=== PATIENT | female | born 1955 | race African-American/Black ===

== ENCOUNTER 2017-09-17 16:16 | Inpatient (IN) ==
--- NOTE | 2017-09-17 16:23 | Emergency Department Report ---
Neuro HPI - General Stated Complaint: poss stroke Time Seen by Provider: 09/17/17 16:23 Source: patient Mode of arrival: wheelchair Limitations: no limitations - History of Present Illness HPI Narrative: Patient is a 61-year-old female history of prior stroke in 1999, they cannot tell me if it was hemorrhagic or embolic. Patient is not no anticoagulation medications and I can identify. Patient was traveling home had sudden onset of expressive aphasia difficulty finding words. Family brought patient right to the ER for evaluation onset approximately 25 minutes ago Onset (ago): minute(s) Time: 1545 Time Estimated: No Location: speech Severity: moderate - Related Data Home Medications: Home Medications Medication Instructions Recorded Confirmed Amlodipine [Norvasc] 10 mg PO DAILY 09/17/17 09/17/17 Atorvastatin [Lipitor] 40 mg PO HS 09/17/17 09/17/17 Citalopram [Celexa] 10 mg PO DAILY 09/17/17 09/17/17 Donepezil [Aricept] 5 mg PO HS 09/17/17 09/17/17 Furosemide [Lasix] 20 mg PO DAILY 09/17/17 09/17/17 Gabapentin [Neurontin] 600 mg PO HS 09/17/17 09/17/17 Insulin Degludec *U100* [Tresiba 20 unit SQ HS 09/17/17 09/17/17 Flextouch U-100 Pen] Insulin Lispro [Humalog] 10 unit SQ WB 09/17/17 09/17/17 Insulin Lispro [Humalog] 12 unit SQ WL 09/17/17 09/17/17 Insulin Lispro [Humalog] 14 unit SQ WS 09/17/17 09/17/17 Levothyroxine Sodium 125 mcg PO ACB 09/17/17 09/17/17 Losartan [Cozaar] 100 mg PO HS 09/17/17 09/17/17 Allergies/Adverse Reactions: Allergies Allergy/AdvReac Type Severity Reaction Status Date / Time No Known Allergies Allergy Verified 09/17/17 17:19 Review of Systems Constitutional: Denies: fever, chills, weakness Eyes: Denies: eye pain, eye discharge ENT: Denies: ear pain, throat pain, dental pain Cardiovascular: Denies: chest pain Respiratory: Denies: cough, dyspnea Gastrointestinal: Denies: abdominal pain, nausea, vomiting Genitourinary: Denies: urgency, dysuria Musculoskeletal: Denies: back pain Integumentary: Denies: alopecia Neurological: Denies: headache, weakness, numbness PFSH Patient Stated Medical History Cerebrovascular Accident Yes Diabetes Mellitus Type 1 Yes Hx Renal Disease No Clinic Medical History (Last Updated 07/14/17 @ 11:19 by Juan Francisco Monroy MD) Diabetes mellitus type 2, uncontrolled, without complications (Chronic Medical ~ 1999) Uncontrolled at all times of day, especially after supper. Hypothyroidism (Chronic Medical ~1994) Clinically euthyroid. CKD (chronic kidney disease) stage 3, GFR 30-59 ml/min (Chronic Medical) Hypertension (Chronic Medical) Hyperlipidemia LDL goal <70 (Chronic Medical) Stroke (Chronic Medical ~1998) Obesity (BMI 30-39.9) (Chronic Medical) Family History: Family History (Last Reviewed 07/14/17 @ 11:09 by Juan Francisco Monroy MD) Mother Colon cancer Sister Pancreatic cancer Brother Multiple myeloma Sister Thyroid disease - Social History Smoking status: Never smoker Substance use type: does not use Alcohol intake frequency: does not drink Physical Exam - Limitations Limitations: no limitations - General General appearance: alert, in no apparent distress - Eye Eye exam: Present: PERRL, EOMI - ENT ENT exam: Present: normal oropharynx, mucous membranes moist, TM's normal bilaterally - Chest Chest inspection: Present: normal inspection, symmetric chest wall rise. Absent : tenderness - Respiratory Respiratory exam: Present: normal lung sounds bilaterally. Absent: respiratory distress, wheezes, stridor - Cardiovascular Cardiovascular exam: Present: regular rate, normal rhythm - Abdominal Exam Abdominal exam: Present: soft, normal bowel sounds. Absent: distention, tenderness - Extremities Exam Extremities exam: Present: full ROM. Absent: tenderness - Skin Skin exam: Present: warm, dry - Expanded Neurological Exam Speech: Present: expressive aphasia Cranial nerves: Normal: EOM function (II, III, IV, ), facial sensation (V), facial palsy (VII), gag reflex (IX), spinal accessory function (XI), tongue deviation (XII) Cerebellar function: normal gait Motor strength - LUE: 5/5 Motor strength - RUE: 5/5 Motor strength - LLE: 5/5 Motor strength - RLE: 5/5 Sensory exam upper extremity: Normal: light touch Sensory exam lower extremity: Normal: light touch DTR: 2+: biceps (L), biceps (R), patellar (L), patellar (R) Coma scale eye opening: spontaneous Coma scale motor response: obeys commands Coma scale verbal response: oriented Coma scale total: 15 Course Vital Signs Temperature 98 F 09/17/17 16:20 Pulse Rate 96 09/17/17 16:20 Respiratory Rate 20 09/17/17 16:20 Pulse Oximetry 98 09/17/17 16:20 Temperature 100.0 F 09/18/17 08:00 Pulse Rate 75 09/18/17 08:00 Respiratory Rate 14 09/18/17 08:00 Blood Pressure 129/64 09/18/17 08:00 Pulse Oximetry 100 09/18/17 08:00 Neuro Symptoms/Deficit - MDM Narrative Medical decision making narrative: Stroke response called: Neurologist has examined patient is currently recommending TPA, risks and benefits discussed with patient, consent signed. Patient's blood pressure elevated labetalol given times one which did decrease blood pressure but not below recommended norms. Brief discussion with neurologist, they would recommend nicardipine drip. Patient is been evaluated by Dr. Pineda, hospitalist, she feels patient's symptoms are improving she would recommend reconsult of Teleneurology re-TPA. Patient is examined again by neurology, neurology is still recommending TPA. Discussed with Dr. Pineda, we will give TPA at this time - Differential Diagnosis Likely: cerebrovascular accident, transient cerebral ischemia - Medical Records Attestation: I reviewed the patient's medical records. - Lab Data Attestation: I reviewed the patient's lab results. Result diagrams: 09/18/17 03:59 09/18/17 03:59 Lab Results 09/17/17 09/17/17 09/17/17 Range/Units 16:42 16:45 16:45 WBC 6.2 (4.5-11.0) T/MM3 RBC 5.13 (4.00-5.20) M/MM3 Hgb 13.3 (12-16) GM/DL Hct 41.8 (36-46) % MCV 81.5 (80-100) UM3 MCH 25.9 L (26-34) UUG MCHC 31.8 (31-37) GM/DL RDW Std Deviation 44.2 (36.9-50.2) FL Plt Count 340 (130-400) T/MM3 MPV 10.8 (9.4-12.4) UM3 Immature Gran % (Auto) 0.2 (0.0-0.5) % Neut % (Auto) 63.4 (33-66) % Lymph % (Auto) 26.7 (23-45) % [place] % (Auto) 8.1 (0-9.0) % Eos % (Auto) 1.1 (0-4) % Baso % (Auto) 0.5 (0-2) % Neut # (Auto) 3.9 (1.8-7.7) T/MM3 Lymph # (Auto) 1.7 (1-4.8) T/MM3 [place] # (Auto) 0.5 (0-0.8) T/MM3 Eos # (Auto) 0.1 (0-0.5) T/MM3 Baso # (Auto) 0.0 (0-0.2) T/MM3 Abs Immat Gran (auto) 0.01 (0.00-0.03) T/MM3 INR 0.99 (0.99-1.21) APTT 50.3 H (24-36) SEC Turbidity (0-20) Sodium (134-144) MEQ/L Potassium (3.6-5) MEQ/L Chloride (98-107) MEQ/L Carbon Dioxide (22-30) MEQ/L Anion Gap (5-15) MEQ/L BUN (7-17) MG/DL Creatinine (0.7-1.2) MG/DL GFR Calculation BUN/Creatinine Ratio (6-26) RATIO Glucose (65-110) MG/DL Glucometer 78 (65-110) mg/dL Calculated Osmolality (261-280) MOSM/KG Calcium (8.4-10.2) MG/DL Total Bilirubin (0.20-1.30) MG/DL Icterus Index (0-7) AST (14-36) U/L ALT (9-52) U/L Alkaline Phosphatase (38-126) U/L Troponin I (0-0.12) ng/ml Total Protein (6.3-8.2) G/DL Albumin (3.5-5.0) G/DL Globulin (2.4-3.6) G/DL Albumin/Globulin Ratio (1.1-2.2) RATIO Specimen Hemolysis (0-25) 02/16/18 Range/Units 16:55 WBC (4.5-11.0) T/MM3 RBC (4.00-5.20) M/MM3 Hgb (12-16) GM/DL Hct (36-46) % MCV (80-100) UM3 MCH (26-34) UUG MCHC (31-37) GM/DL RDW Std Deviation (36.9-50.2) FL Plt Count (130-400) T/MM3 MPV (9.4-12.4) UM3 Immature Gran % (Auto) (0.0-0.5) % Neut % (Auto) (33-66) % Lymph % (Auto) (23-45) % [place] % (Auto) (0-9.0) % Eos % (Auto) (0-4) % Baso % (Auto) (0-2) % Neut # (Auto) (1.8-7.7) T/MM3 Lymph # (Auto) (1-4.8) T/MM3 [place] # (Auto) (0-0.8) T/MM3 Eos # (Auto) (0-0.5) T/MM3 Baso # (Auto) (0-0.2) T/MM3 Abs Immat Gran (auto) (0.00-0.03) T/MM3 INR (0.99-1.21) APTT (24-36) SEC Turbidity < 20 (0-20) Sodium 147 H (134-144) MEQ/L Potassium 3.8 (3.6-5) MEQ/L Chloride 109 H (98-107) MEQ/L Carbon Dioxide 28 (22-30) MEQ/L Anion Gap 10 (5-15) MEQ/L BUN 17.0 (7-17) MG/DL Creatinine 1.9 H (0.7-1.2) MG/DL GFR Calculation 27 BUN/Creatinine Ratio 9 (6-26) RATIO Glucose 77 (65-110) MG/DL Glucometer (65-110) mg/dL Calculated Osmolality 283 H (261-280) MOSM/KG Calcium 9.9 (8.4-10.2) MG/DL Total Bilirubin 1.00 (0.20-1.30) MG/DL Icterus Index < 2 (0-7) AST 22 (14-36) U/L ALT 28 (9-52) U/L Alkaline Phosphatase 132 H (38-126) U/L Troponin I 0.031 (0-0.12) ng/ml Total Protein 7.2 (6.3-8.2) G/DL Albumin 4.1 (3.5-5.0) G/DL Globulin 3.1 (2.4-3.6) G/DL Albumin/Globulin Ratio 1.3 (1.1-2.2) RATIO Specimen Hemolysis 37 H (0-25) - Radiology Data Attestation: I reviewed the patient's radiology results. CT scan: No acute intercerebral abnormality - EKG Data EKG #1 EKG attestation: Yes: I reviewed and interpreted this EKG. Rate: normal Rhythm: NSR [place]/QRS: normal Interpretation: no acute changes Critical Care Time Critical Care Time: Yes Total Critical Care Time: 52 Attestation: The high probability of a clinically significant, sudden or life threatening deterioration of the neurologic and cardiovascular system(s) required my full and direct attention, intervention and personal management. The aggregate critical care time was 52 minutes. This time is in addition to time spent performing reported procedures but includes the following: X Data Review and interpretation X Patient assessment and monitoring of vital signs X Documentation X Medication orders and management Disposition Clinical Impression: Cerebrovascular accident [place]: 02 [place] [facility] [place] Care Condition: Stable - Seen By: physician
--- NOTE | 2017-09-17 16:48 | CT Scan Report ---
Indication: slurring of speech possible stroke PROCEDURE: CT head/brain wo con: Encounter: Initial Comparison: None Technique: Axial CT images through the head were performed without contrast. Iterative Reconstruction dose reducing technique was utilized. FINDINGS: The ventricles are of normal size, shape, and contour for the patient's age. There are scattered areas of low attenuation in the white matter which most likely represent changes from chronic microvascular ischemia. Old right caudate area lacunar infarcts. The brainstem, cerebellum, and cerebral hemispheres otherwise have a normal morphology and CT attenuation. There is no evidence of midline displacement. No hemorrhage, signs of acute territorial stroke, mass effect, mass lesions, or edema is evident. The visualized portions of the skull base, midface, and calvarium demonstrate no abnormality. The paranasal sinuses are well aerated and free of significant disease. The tympanic and mastoid cavities appear normal. IMPRESSION: No acute intracranial hemorrhage or extended infarct signs. Results discussed with Dr. Hernandez in the emergency department at 1633 on September 17, 2017, two minutes after the conclusion of the exam. .
[2017-09-17] MEDS ORDERED: ALTEPLASE (Activase*) 100mg INJECTION (Stroke Tx) IV ONE ×2 (16:57)
[2017-09-17] MEDS ORDERED: LABETALOL 100mg/20ml INJECTION IVP ONE (17:02)
[2017-09-17] MEDS ORDERED: NICARDIPINE 50 MG in NS 500ml 500 ML IV PRN (17:24)
[2017-09-17] MEDS: SALINE FLUSH 10ml SYRINGE IVF PRN (17:32)
--- NOTE | 2017-09-17 18:33 | History & Physical Report ---
History of Present Illness Date: 09/17/17 Chief complaint: possible stroke HPI: Patient is a 61yo female who presented to ED with her sister for possible stroke -like sxs. Her sister noted pt wasn't responding to questions appropriately and noted facial asymmetry. Patient herself didn't note any problems, but sister states the patient never recognizes when she is having health issues. Pt is a diabetic with retinopathy and nephropathy d/t uncontrolled DM. She sees Dr. Monroy for DM and Dr Sanches for her kidney disease. She was feeling fine prior to sx-onset. CT head was performed shortly after arrival to ER and was negative. Teleneurologist service was consulted and recommended tx with TPa. Patient had PICC line placed in ER, nicardipine drip started and was getting ready to start TPa at time of my visit. Pt's sister was present and supplied most of the history. Patient was very anxious, but was able to answer questions appropriately. She did have some expressive aphasia when giving her sister instructions for going home to take care of her dog, but it isn't clear whether this was truly expressive aphasia vs anxiety. Review of Systems All systems PM: 10-point ROS was reviewed, no additional remarkable complaints except Review of systems: specifically denies pain, numbness, weakness, headache or vision changes. Feels cold and anxious, otherwise neg ROS. Past Medical History Clinic Medical History Diabetes mellitus type 2, uncontrolled, without complications (Chronic Medical ~ 1999) Uncontrolled at all times of day, especially after supper. Hypothyroidism (Chronic Medical ~1994) Clinically euthyroid. CKD (chronic kidney disease) stage 3, GFR 30-59 ml/min (Chronic Medical) Hypertension (Chronic Medical) Hyperlipidemia LDL goal <70 (Chronic Medical) Stroke (Chronic Medical ~1998) Obesity (BMI 30-39.9) (Chronic Medical) Medical History Updates: h/o thyroid cancer. ? h/o TB. vascular dementia Surgical History: appy, cholecystectomy Family History: Family History Mother Colon cancer Sister Pancreatic cancer Brother Multiple myeloma Sister Thyroid disease Family History Updates: Sister with pancreatic cancer also had h/o breast CA and hemorrhagic CVA - Social History Smoking status: Former smoker (quit approx 2002) Substance use type: marijuana (previous) Alcohol intake frequency: does not drink Household members: none Social history: Moved here from [place]. Lives alone with her sister's dog. Her sister lives close and checks in on her. Patient does not drive. . No children. PCP-Dr. John Scientific Informatics Analyst - Dr Sanches Associate Director Qa - Dr. Vizcaino Medications Home Medications Medication Instructions Recorded Confirmed Type Amlodipine [Norvasc] 10 mg PO DAILY 09/17/17 09/17/17 History Atorvastatin [Lipitor] 40 mg PO HS 09/17/17 09/17/17 History Citalopram [Celexa] 10 mg PO DAILY 09/17/17 09/17/17 History Donepezil [Aricept] 5 mg PO HS 09/17/17 09/17/17 History Furosemide [Lasix] 20 mg PO DAILY 09/17/17 09/17/17 History Gabapentin [Neurontin] 600 mg PO HS 09/17/17 09/17/17 History Insulin Degludec *U100* [Tresiba 20 unit SQ HS 09/17/17 09/17/17 History Flextouch U-100 Pen] Insulin Lispro [Humalog] 10 unit SQ WB 09/17/17 09/17/17 History Insulin Lispro [Humalog] 12 unit SQ WL 09/17/17 09/17/17 History Insulin Lispro [Humalog] 14 unit SQ WS 09/17/17 09/17/17 History Levothyroxine Sodium 125 mcg PO ACB 09/17/17 09/17/17 History Losartan [Cozaar] 100 mg PO HS 09/17/17 09/17/17 History Allergies Allergy/AdvReac Type Severity Reaction Status Date / Time No Known Allergies Allergy Verified 09/17/17 17:19 Exam Vital Signs: Temperature 98.3 F 09/17/17 17:56 Pulse Rate 82 09/17/17 17:50 Respiratory Rate 24 09/17/17 17:50 Blood Pressure 168/79 H 09/17/17 17:50 Pulse Oximetry 95 09/17/17 17:58 - Constitutional Present: mild distress (anxious), well nourished, well developed - Routine HEENT Exam Head: Present: normocephalic, atraumatic Eye: Present: EOMI, PERRL, normal accommodation. Absent: conjunctival icterus ENT: Present: mucous membranes moist, oropharynx clear - Routine Neck Exam Present: supple. Absent: lymphadenopathy, thyromegaly - Routine Respiratory Exam Present: CTA bilaterally. Absent: wheezes - Routine Cardiovascular Exam Present: RRR, no murmur - Routine Abdominal Exam Present: soft, normoactive bowel sounds. Absent: tenderness, distended - Routine Extremities Exam Present: no edema, normal capillary refill - Routine Skin Exam Present: dry, warm - Routine Neurological Exam Present: alert, oriented X3, CN II-XII intact, moving all extremities, normal speech. Absent: sensory deficit, motor deficit, pronator drift, altered mental status, facial asymmetry - Routine Psychiatric Exam Present: normal affect, cooperative, anxious Results - Labs CBC & Chem 7: 09/17/17 16:45 09/17/17 16:55 Labs: Laboratory Tests 09/17/17 09/17/17 16:45 16:55 INR 0.99 APTT 50.3 H Troponin I 0.031 - ECG Data Tracing #1 NSR - Imaging and Cardiology CT scan - head Additional comments: Date of Exam: 09/17/17 Indication: slurring of speech possible stroke PROCEDURE: CT head/brain wo con: FINDINGS: The ventricles are of normal size, shape, and contour for the patient's age. There are scattered areas of low attenuation in the white matter which most likely represent changes from chronic microvascular ischemia. Old right caudate area lacunar infarcts. The brainstem, cerebellum, and cerebral hemispheres otherwise have a normal morphology and CT attenuation. There is no evidence of midline displacement. No hemorrhage, signs of acute territorial stroke, mass effect, mass lesions, or edema is evident. The visualized portions of the skull base, midface, and calvarium demonstrate no abnormality. The paranasal sinuses are well aerated and free of significant disease. The tympanic and mastoid cavities appear normal. IMPRESSION: No acute intracranial hemorrhage or extended infarct signs. Assessment and Plan (1) Stroke Current visit: No Status: Chronic Assessment and Plan: Assessment Expressive aphasia and transient facial droop - suspect ischemic stroke - tx with TPA initiated Diabetes mellitus type 2, uncontrolled, without complications (A1C 05/18 - 9.6%) Uncontrolled at all times of day, especially after supper. Hypothyroidism (Chronic Medical ~1994) Clinically euthyroid. CKD (chronic kidney disease) stage 3, GFR 30-59 ml/min (Creatinine 05/18 - 2.11) Diabetic retinopathy Hypertension Hyperlipidemia LDL goal <70 Stroke (Chronic Medical ~1998) Obesity (BMI 30-39.9) Plan Admit IP under the hospitalist service, Dr. Pineda attending. LOS expected to exceed 2 overnights given tx with TPA for stroke and given her many comorbidities. TPA was administered in ER. Admitted to CCU for close monitoring. Routine neurochecks/vitals. CT head w/o contrast at 24 hrs post TPA. Echo to eval cardiac structure and function and carotid doppler to r/o carotid stenosis. Telemetry to monitor for cardiac arrhythmia. Patient requests DNR and names her sister as her DPOA-H. Care to return to Dr. John on dismissal. DVT Prophylaxis: SCD's Resuscitation Status: Do Not Resuscitate - Physician Narrative Physician: Kacie Pineda MD Narrative: Date: 09/17/17 Time: 2044 I have independently evaluated and examined this patient. I reviewed the chart, the patient's history, and the WAREHOUSE LEAD/PA's documented findings as above. We discussed and formulated the assessment and plan as above with additions as below: Lina was seen in the emergency room prior to administration of TPA and again in the ICU as administration completed. She presented to the emergency room after onset of expressive aphasia well driving with her sister. Her sister also vividly describes facial droop/asymmetry which subsequently resolved. Expressive aphasia was present on arrival in the emergency room and had partially resolved at time of my initial assessment. When seen in the emergency room at approximately 4:30 PM the patient had soft speech and seemed hesitant to give responses although her responses were appropriate and she was able to provide limited history. She appeared very anxious about multiple people in the room working on IV access and multiple blood pressure readings being taken. She denied preceding numbness or weakness in any extremity. She denied visual blurring or double vision. She was able to repeat phrases and could tell me where she was. Proximal/distal power was intact in the upper and lower extremities with normal motor tone and no tremor Sensation was intact to touch/cold in the extremities and across the face. EOMI without nystagmus, sensation intact across all 3 distributions of the face , tongue midline, no facial asymmetry present and I could not detect any residual facial droop at the time of my initial assessment. Repeat examination at approximately 7:45 PM demonstrated no changes other than patient was speaking a little more forcefully than when initially seen. Time of reassessment the patient complained of left periorbital headache without visual symptoms. Head CT reviewed by myself no acute intracranial pathology; scattered areas of chronic white matter change consistent with microvascular disease, old right caudate lacunar infarct. EKG demonstrates sinus rhythm with quadrigeminal PVCs, no acute ST/T-wave changes, normal waveforms. Laboratory data notable for increased PTT, normal INR; mild hypernatremia, and creatinine of 1.9. Calcium is normal at this time. Expressive aphasia/facial droop-symptoms resolving Uncontrolled hypertension Unilateral headache Anxiety Continue labetalol to maintain systolic blood pressure below 180 but will not overcorrect, goal 150-[address] 24 hours. Routine therapy evaluations, and lipids. Because PTT is elevated will screen a lupus anticoagulant. Lorazepam added for anxiety; [place], morphine, and Tylenol available for pain. Resume basal insulin in conjunction with gabapentin, levothyroxine, Aricept, and atorvastatin at dose 80 mg daily at bedtime. Nursing report the patient's sister indicates patient is a full code-status reviewed with patient and her sister collectively due to patient's cognitive deficit. Patient clearly defers to her sister and full CODE STATUS was elected. Hospital Course Summary Disclaimer: The visit summary below is not to be considered part of the above Progress Note. Hospital Course: 09/17/17 - hospital admission Admit IP under the hospitalist service, Dr. Pineda attending. LOS expected to exceed 2 overnights given tx with TPA for stroke and given her many comorbidities. TPA was administered in ER. Admitted to CCU for close monitoring. Routine neurochecks/vitals. CT head w/o contrast at 24 hrs post TPA. Echo to eval cardiac structure and function and carotid doppler to r/o carotid stenosis. Telemetry to monitor for cardiac arrhythmia. Patient requests DNR and names her sister as her DPOA-H. Care to return to Dr. John on dismissal
[2017-09-17] MEDS ORDERED: ACETAMINOPHEN 650 MG SUPPOSITORY PR PRN (19:40)
[2017-09-17] MEDS ORDERED: MORPHINE SULFATE 4mg INJECTION IVP PRN (19:41)
[2017-09-17] MEDS ORDERED: HYDROCODONE/APAP 5mg/325mg TABLET PO PRN (19:41)
[2017-09-17 20:00] VITALS: BMI 28.3
[2017-09-17] MEDS ORDERED: ACETAMINOPHEN 325 MG TABLET PO PRN (21:03)
[2017-09-18] MEDS: ATORVASTATIN 40 MG TABLET PO SCH ×2 (01:45→21:39)
[2017-09-18] MEDS: GABAPENTIN 600 MG TABLET PO SCH ×2 (01:45→21:38)
[2017-09-18] MEDS: LEVOTHYROXINE 125 MCG TABLET PO SCH (06:36)
[2017-09-18] MEDS: CITALOPRAM 10 MG TABLET PO SCH (13:23)
[2017-09-18] MEDS ORDERED: INSULIN ASPART 100unit/ml INJECTION SQ ONE (13:27)
[2017-09-18] MEDS: SALINE FLUSH 10ml SYRINGE IVF PRN ×2 (13:29→17:53)
--- NOTE | 2017-09-18 14:18 | Progress Note ---
- Date 09/18/17 Subjective: Lina was sleeping when seen this morning, she awoke to voice but would drift back to sleep when not being actively stimulated. She reported headache resolved overnight and has not recurred. She denies focal weaknesses morning, difficulty swallowing, dyspnea, pain, or nausea. Nursing reported subtle right- sided weakness earlier on neuro check. Objective Vital signs: Temperature 100.0 F 09/18/17 08:00 Pulse Rate 75 09/18/17 08:00 Respiratory Rate 14 09/18/17 08:00 Blood Pressure 129/64 09/18/17 08:00 Pulse Oximetry 100 -RA 09/18/17 08:00 EXAM General-NAD, drowsy, falls asleep frequently HEENT-conjugate gaze, EOMI, oropharynx clear, tongue midline Lungs-respirations nonlabored, good airflow, breath sounds clear Cardiac-regular rhythm, S1-S2 Abd-soft, nontender, bowel sounds present Ext-without edema Neuro-MAEW, no drift of upper extremities although minor minor clonus present as patient is falling asleep, paper inspector symmetric, has trouble following instructions to test lower extremity power but able to hold each leg off the bed dependently/symmetrically, plantar flexion equal; sensation intact 4 extremities to light touch/cool Psych-dull, dementia - Height/Weight/BMI: Height 1.7 m Weight 83.3 kg Body Mass Index 28.3 Results - Labs CBC & Chem 7: 09/18/17 03:59 09/18/17 03:59 Labs: Total cholesterol 187, LDL 96, HDL 74, triglycerides 85 Lupus anticoagulant pending - Imaging and Cardiology carotid Doppler Status: image reviewed by me (minor atherosclerotic plaquing bilateral internal carotid arteries without hemodynamically significant stenosis per radiology report) Assessment and Plan (1) Stroke Current visit: No Status: Chronic Assessment and Plan: Assessment Expressive aphasia and transient facial droop - suspect ischemic stroke - tx with TPA initiated Hypertension, uncontrolled vs hypertensive crisis Left periorbital headache Anxiety Diabetes mellitus type 2, uncontrolled, without complications (A1C 05/18 - 9.6%) Uncontrolled at all times of day, especially after supper. Hypothyroidism (Chronic Medical ~1994) Clinically euthyroid. CKD (chronic kidney disease) stage 3, GFR 30-59 ml/min (Creatinine 05/18 - 2.11) Diabetic retinopathy Hyperlipidemia LDL goal <70 Stroke (Chronic Medical ~1998) Obesity (BMI 30-39.9) Vascular dementia Plan Aphasia has improved, I don't detect overt deficits at present although patient is drowsy and does not exhibit maximal effort with testing. TPA administered in [id number] CT today. Nicardipine required yesterday for blood pressure control, titrated off overnight and blood pressure now normal with usual home medicines on hold. Transient left periorbital headache last night without visual change or change in neurological exam, resolved with morphine. No recurrence. Telemetry with sinus rhythm per my review. Continue aspirin, atorvastatin at 80 mg. Consider MRI. Speech therapy cleared for regular diet, suggested communication screening for further language evaluation. Insulin resumed with meals. PT/OT evaluations completed-minor functional deficits, home health initial recommendation. DVT Prophylaxis: SCD's, Lovenox Resuscitation Status: Full Code - Physician Narrative Narrative: Date: 09/18/17 Time: 1415 Hospital Course Summary Disclaimer: The visit summary below is not to be considered part of the above Progress Note. Hospital Course: 09/17/17 - hospital admission Admit IP under the hospitalist service, Dr. Pineda attending. LOS expected to exceed 2 overnights given tx with TPA for stroke and given her many comorbidities. TPA was administered in ER. Admitted to CCU for close monitoring. Routine neurochecks/vitals. CT head w/o contrast at 24 hrs post TPA. Echo to eval cardiac structure and function and carotid doppler to r/o carotid stenosis. Telemetry to monitor for cardiac arrhythmia. Patient is full code and names her sister as her DPOA-H. Care to return to Dr. John on dismissal 09/18/17 Aphasia has improved, I don't detect overt deficits at present although patient is drowsy and does not exhibit maximal effort with testing. TPA administered in [id number] CT today. Nicardipine required yesterday for blood pressure control, titrated off overnight and blood pressure now normal with usual home medicines on hold. Transient left periorbital headache last night without visual change or change in neurological exam, resolved with morphine. No recurrence. Telemetry with sinus rhythm per my review. Continue aspirin, atorvastatin at 80 mg. Consider MRI. Speech therapy cleared for regular diet, suggested communication screening for further language evaluation. PT/OT evaluations completed-minor functional deficits, home health initial recommendation.
[2017-09-18] MEDS: INSULIN ASPART 100unit/ml INJECTION SQ SCH (17:52)
[2017-09-18] MEDS ORDERED: INFLUENZA VAC QIV 2017-18 (Fluarix*)(>=3yo) 0.5ml IM ONE (18:10)
[2017-09-18] MEDS ORDERED: INFLUENZA VAC. INJ. ADMIN CHARGE INJ ONE (18:30)
[2017-09-18] MEDS: INSULIN DEGLUDEC 100 UNIT/ML PO SCH (21:35)
[2017-09-18] MEDS: DONEPEZIL 5 MG TABLET PO SCH (21:38)
[2017-09-19] MEDS ORDERED: HYDRALAZINE 20 MG/ML INJECTION IVP PRN (05:17)
[2017-09-19] MEDS: LEVOTHYROXINE 125 MCG TABLET PO SCH (06:46)
[2017-09-19] MEDS: CITALOPRAM 10 MG TABLET PO SCH (08:45)
[2017-09-19] MEDS: SALINE FLUSH 10ml SYRINGE IVF PRN ×2 (08:47→15:50)
[2017-09-19] MEDS: INSULIN ASPART 100unit/ml INJECTION SQ SCH ×3 (08:47→18:02)
[2017-09-19] MEDS: ENOXAPARIN 40 MG/0.4 ML INJECTION SQ SCH (08:47)
[2017-09-19] MEDS: AMLODIPINE 10 MG TABLET PO SCH (09:44)
--- NOTE | 2017-09-19 10:40 | CT Scan Report ---
Indication: s/p TPA for CVA PROCEDURE: CT head/brain wo con: Encounter: Initial Comparison: Brain CT dated September 17, 2017 Technique: Axial CT images through the head were performed without contrast. Iterative Reconstruction dose reducing technique was utilized. FINDINGS: The ventricles are of normal size, shape, and contour for the patient's age. Old lacunar infarcts. No obvious evolving acute infarct seen. No evidence of acute hemorrhage. There are scattered areas of low attenuation in the white matter which most likely represent changes from chronic microvascular ischemia. The brainstem, cerebellum, and cerebral hemispheres otherwise have a normal morphology and CT attenuation. There is no evidence of midline displacement. No hemorrhage, mass effect, mass lesions, or edema is evident. The visualized portions of the skull base, midface, and calvarium demonstrate no abnormality. The paranasal sinuses are well aerated and free of significant disease. The tympanic and mastoid cavities appear normal. IMPRESSION: No acute intracranial hemorrhage following TPA administration. There is a preliminary report by [employer]. .
--- NOTE | 2017-09-19 10:44 | Ultrasound Report ---
Indication: cva PROCEDURE: US carotid doppler BI: TECHNIQUE: Grayscale, color and duplex Doppler imaging was performed of the carotid systems bilaterally. Velocities in cm/sec - validated velocity measurements with angiographic measurements, velocity criteria are extrapolated from diameter data as defined by the Society of Radiologists in Ultrasound Consensus Conference Radiology 2003; 229;340-346. RIGHT: PSV ICA 74.8 EDV ICA 17.3 PSV CCA 66.7 EDV CCA 13.5 PSV ECA 65.6 ICA Diameter reduction <20% (0.8-1.0)% LEFT: PSV ICA 62.3 EDV ICA 21.9 PSV CCA 68.3 EDV CCA 16.8 PSV ECA 53.3 ICA Diameter reduction <20% (0.8-1.0)% The right vertebral artery is patent with cephalic flow. The left vertebral artery is patent with cephalic flow. Minimal plaque present. No elevated velocities. IMPRESSION: No hemodynamically significant carotid stenosis. There is a preliminary report by [employer]. .
[2017-09-19] MEDS: INSULIN ASPART 100unit/ml INJECTION SQ PRN ×3 (12:49→20:34)
--- NOTE | 2017-09-19 13:26 | Progress Note ---
- Date 09/19/17 Subjective: Lina was sleeping when I arrived but awoke to voice and indicated that she had no concerns today. She felt like she was moving both arms and legs normally and that her speech has returned to normal. Nursing reported that the patient leaned to the left a little bit when she ambulated. Post-TPA CT head was negative for hemorrhage. Patient denies dyspnea, chest pain, palpitations, or nausea. Objective Vital signs: Temperature 100.0 F 09/19/17 12:30 Pulse Rate 95 09/19/17 12:30 Respiratory Rate 14 09/19/17 12:00 Blood Pressure 142/67 H 09/19/17 12:30 Pulse Oximetry 96 -RA 09/19/17 12:30 EXAM General-NAD, alert, fluent speech HEENT-conjunctiva clear, EOMI, sclera anicteric, oropharynx clear, tongue midline Lungs-respirations nonlabored, good airflow, breath sounds clear Cardiac-regular rhythm, S1-S2 Abd-soft, obese, nontender, bowel sounds present Ext-without edema Neuro-MAEW, no drift to the upper extremities, corporate legal secretary strong, dorsiflexion/ plantarflexion intact bilaterally; sensation intact to touch/cold 4 extremities Psych-anxious but cooperative - Height/Weight/BMI: Height 1.7 m Weight 83.1 kg Body Mass Index 28.3 Results - Labs CBC & Chem 7: 09/19/17 03:58 09/19/17 03:58 - Imaging and Cardiology CT scan - head Status: image reviewed by me (post-TPA CT head reviewed by myself demonstrates no hemorrhage.) Assessment and Plan (1) Stroke Current visit: No Status: Chronic Assessment and Plan: Assessment Expressive aphasia and transient facial droop - suspect ischemic stroke - tx with TPA initiated Hypertension, uncontrolled vs hypertensive crisis Left periorbital headache Anxiety Diabetes mellitus type 2, uncontrolled, without complications (A1C 05/18 - 9.6%) Uncontrolled at all times of day, especially after supper. Hypothyroidism (Chronic Medical ~1994) Clinically euthyroid. CKD (chronic kidney disease) stage 3, GFR 30-59 ml/min (Creatinine 05/18 - 2.11) Diabetic retinopathy Hyperlipidemia LDL goal <70 Stroke (Chronic Medical ~1998) Obesity (BMI 30-39.9) Vascular dementia Plan Expressive aphasia/facial droop have resolved; minimally symptomatic in the emergency room prior to TPA administration. Post-TPA head CT negative for hemorrhage. Proceed with MRI to complete stroke evaluation. Continue aspirin, atorvastatin at 80 mg. Carotid Dopplers without hemodynamically significant internal carotid stenosis. Blood pressure elevated overnight, home dose of amlodipine resumed this morning. Other home blood pressure medications remain on hold. Blood sugars generally well controlled on slightly reduced insulin doses from home regimen. PT/OT evaluations completed-minor functional deficits, home health initial recommendation. Speech therapy to reevaluate regarding language evaluation in a.m.-cleared for regular diet by speech yesterday. - Physician Narrative Narrative: Date: 09/19/17 Time: 1317 Hospital Course Summary Disclaimer: The visit summary below is not to be considered part of the above Progress Note. Hospital Course: 09/17/17 - hospital admission Admit IP under the hospitalist service, Dr. Pineda attending. LOS expected to exceed 2 overnights given tx with TPA for stroke and given her many comorbidities. TPA was administered in ER. Admitted to CCU for close monitoring. Routine neurochecks/vitals. CT head w/o contrast at 24 hrs post TPA. Echo to eval cardiac structure and function and carotid doppler to r/o carotid stenosis. Telemetry to monitor for cardiac arrhythmia. Patient is full code and names her sister as her DPOA-H. Care to return to Dr. John on dismissal 09/18/17 Aphasia has improved, I don't detect overt deficits at present although patient is drowsy and does not exhibit maximal effort with testing. TPA administered in HH-[id number] CT today. Nicardipine required yesterday for blood pressure control, titrated off overnight and blood pressure now normal with usual home medicines on hold. Transient left periorbital headache last night without visual change or change in neurological exam, resolved with morphine. No recurrence. Telemetry with sinus rhythm per my review. Continue aspirin, atorvastatin at 80 mg. Consider MRI. Speech therapy cleared for regular diet, suggested communication screening for further language evaluation. PT/OT evaluations completed-minor functional deficits, home health initial recommendation. 09/19/17 Expressive aphasia/facial droop have resolved; minimally symptomatic in the emergency room prior to TPA administration. Post-TPA head CT negative for hemorrhage. Proceed with MRI to complete stroke evaluation. Amlodipine resumed for hypertension; remainder of home medications on hold. Speech to reevaluate for language/communication in a.m.
[2017-09-19] MEDS: ASPIRIN *EC* 81 MG TABLET PO SCH (18:02)
[2017-09-19] MEDS: GABAPENTIN 600 MG TABLET PO SCH (20:33)
[2017-09-19] MEDS: ATORVASTATIN 40 MG TABLET PO SCH (20:33)
[2017-09-19] MEDS: DONEPEZIL 5 MG TABLET PO SCH (20:33)
[2017-09-19] MEDS: INSULIN DEGLUDEC 100 UNIT/ML PO SCH (20:36)
--- NOTE | 2017-09-19 22:05 | Magnetic Resonance Report ---
Indication: new aphasia, hx CVA PROCEDURE: MR head/brain wo con: Encounter: Initial Comparisons: Head CT dated September 18, 2017 Technique: Multiplanar, multisequence, MR imaging of the head without contrast was acquired. FINDINGS: Motion artifact severely limits the quality the exam. No gross acute intracranial hemorrhage or infarct. No mass effect or midline shift. Ventricles are normal. Age-appropriate periventricular white matter hyperintense lesions probably related to microvascular ischemia. Old right-sided frontal lobe lacunar infarct. No acute calvarial abnormality. Orbits are unremarkable. No acute diffusion restriction to suggest an acute infarct. IMPRESSION: Limited exam due to motion. No acute intracranial hemorrhage or infarct. .
[2017-09-20 00:35] VITALS: RESP 16
[2017-09-20] MEDS: LEVOTHYROXINE 125 MCG TABLET PO SCH (06:24)
[2017-09-20 08:11] VITALS: BP 163/84; PULSE 93; TEMP 95.8; O2SAT 95
[2017-09-20] MEDS: CITALOPRAM 10 MG TABLET PO SCH (08:13)
[2017-09-20] MEDS: INSULIN ASPART 100unit/ml INJECTION SQ SCH ×2 (08:13→13:17)
[2017-09-20] MEDS: ASPIRIN *EC* 81 MG TABLET PO SCH (08:13)
[2017-09-20] MEDS: AMLODIPINE 10 MG TABLET PO SCH (08:13)
[2017-09-20] MEDS: ENOXAPARIN 40 MG/0.4 ML INJECTION SQ SCH (08:13)
--- NOTE | 2017-09-20 10:05 | Discharge Summary ---
Discharge Information Date of admission: 09/17/17 18:02 Anticipated date of discharge: 09/20/17 Attending Physician: Kacie Pineda MD Primary care physician: Taryn John, DO - Discharge Diagnosis (1) Stroke Status: Chronic Expressive aphasia and transient facial droop - resolved. S/p TPA administration. Hypertension, uncontrolled vs hypertensive crisis Left periorbital headache-resolved Anxiety Diabetes mellitus type 2, uncontrolled, without complications (A1C 05/18 - 9.6%) Uncontrolled at all times of day, especially after supper. Hypothyroidism (Chronic Medical ~1994) Clinically euthyroid. CKD (chronic kidney disease) stage 3, GFR 30-59 ml/min (Creatinine 05/18 - 2.11) Diabetic retinopathy Hyperlipidemia LDL goal <70 Stroke (Chronic Medical ~1998) Obesity (BMI 30-39.9) Vascular dementia - Procedures Procedures: Echocardiogram - pending - Laboratory Labs: 09/20/17 03:45 09/20/17 03:45 Lipid panel 09/18/17 03:59 Triglycerides 85 Cholesterol 187 LDL Cholesterol, Calc 96.0 VLDL Cholesterol 17.0 HDL Cholesterol 74 H Cholesterol/HDL Ratio 2.5 - Radiology Radiology: = = = = = = = = = = = = = = = = = = = = = = = = = = = = = = = = = = = = = = = = = = = = = = = = = = = = = = = = = = = Date of Exam: 09/19/17 Indication: new aphasia, hx CVA PROCEDURE: MR head/brain wo con: FINDINGS: Motion artifact severely limits the quality the exam. No gross acute intracranial hemorrhage or infarct. No mass effect or midline shift. Ventricles are normal. Age-appropriate periventricular white matter hyperintense lesions probably related to microvascular ischemia. Old right-sided frontal lobe lacunar infarct. No acute calvarial abnormality. Orbits are unremarkable. No acute diffusion restriction to suggest an acute infarct. IMPRESSION: Limited exam due to motion. No acute intracranial hemorrhage or infarct. Date of Exam: 09/18/17 Indication: s/p TPA for CVA PROCEDURE: CT head/brain wo con: FINDINGS: The ventricles are of normal size, shape, and contour for the patient's age. Old lacunar infarcts. No obvious evolving acute infarct seen. No evidence of acute hemorrhage. There are scattered areas of low attenuation in the white matter which most likely represent changes from chronic microvascular ischemia. The brainstem, cerebellum, and cerebral hemispheres otherwise have a normal morphology and CT attenuation. There is no evidence of midline displacement. No hemorrhage, mass effect, mass lesions, or edema is evident. The visualized portions of the skull base, midface, and calvarium demonstrate no abnormality. The paranasal sinuses are well aerated and free of significant disease. The tympanic and mastoid cavities appear normal. IMPRESSION: No acute intracranial hemorrhage following TPA administration. Date of Exam: 09/18/17 Indication: cva PROCEDURE: US carotid doppler BI: RIGHT: PSV ICA 74.8 EDV ICA 17.3 PSV CCA 66.7 EDV CCA 13.5 PSV ECA 65.6 ICA Diameter reduction <20% (0.8-1.0)% LEFT: PSV ICA 62.3 EDV ICA 21.9 PSV CCA 68.3 EDV CCA 16.8 PSV ECA 53.3 ICA Diameter reduction <20% (0.8-1.0)% The right vertebral artery is patent with cephalic flow. The left vertebral artery is patent with cephalic flow. Minimal plaque present. No elevated velocities. IMPRESSION: No hemodynamically significant carotid stenosis. Date of Exam: 09/17/[address] IN ER Indication: slurring of speech possible stroke PROCEDURE: CT head/brain wo con: FINDINGS: The ventricles are of normal size, shape, and contour for the patient's age. There are scattered areas of low attenuation in the white matter which most likely represent changes from chronic microvascular ischemia. Old right caudate area lacunar infarcts. The brainstem, cerebellum, and cerebral hemispheres otherwise have a normal morphology and CT attenuation. There is no evidence of midline displacement. No hemorrhage, signs of acute territorial stroke, mass effect, mass lesions, or edema is evident. The visualized portions of the skull base, midface, and calvarium demonstrate no abnormality. The paranasal sinuses are well aerated and free of significant disease. The tympanic and mastoid cavities appear normal. IMPRESSION: No acute intracranial hemorrhage or extended infarct signs. History of Present Illness HPI: Patient is a 61yo female who presented to ED with her sister for possible stroke -like sxs. Her sister noted pt wasn't responding to questions appropriately and noted facial asymmetry. Patient herself didn't note any problems, but sister states the patient never recognizes when she is having health issues. Pt is a diabetic with retinopathy and nephropathy d/t uncontrolled DM. She sees Dr. Monroy for DM and Dr Sanches for her kidney disease. She was feeling fine prior to sx-onset. CT head was performed shortly after arrival to ER and was negative. Teleneurologist service was consulted and recommended tx with TPa. Patient had PICC line placed in ER, nicardipine drip started and was getting ready to start TPa at time of my visit. Pt's sister was present and supplied most of the history. Patient was very anxious, but was able to answer questions appropriately. She did have some expressive aphasia when giving her sister instructions for going home to take care of her dog, but it isn't clear whether this was truly expressive aphasia vs anxiety. Objective Vital signs: Temperature 95.8 F L 09/20/17 08:09 Pulse Rate 93 09/20/17 08:09 Respiratory Rate 16 09/20/17 08:09 Blood Pressure 163/84 H 09/20/17 08:09 Pulse Oximetry 95 09/20/17 08:09 Height/Weight/BMI: Height 1.7 m Weight 85.8 kg Body Mass Index 28.3 - Constitutional Present: no acute distress, well nourished, well developed - Routine HEENT Exam Head: Present: normocephalic, atraumatic - Routine Respiratory Exam Present: CTA bilaterally. Absent: wheezes - Routine Cardiovascular Exam Present: RRR, no murmur - Routine Abdominal Exam Present: soft, non distended, non tender - Routine Extremities Exam Present: no edema, normal capillary refill - Routine Skin Exam Present: dry, warm - Routine Neurological Exam Present: alert, oriented X3 CN III-XII intact - Routine Lymphatic Exam Lymphatic: Absent: adenopathy - Routine Psychiatric Exam Present: normal affect, cooperative Hospital Course This is a general summary of the patient's hospital course. For more details refer to the complete medical record. Hospital course: 09/17/17 - hospital admission Admit IP under the hospitalist service, Dr. Pineda attending. LOS expected to exceed 2 overnights given tx with TPA for stroke and given her many comorbidities. TPA was administered in ER. Admitted to CCU for close monitoring. Routine neurochecks/vitals. CT head w/o contrast at 24 hrs post TPA. Echo to eval cardiac structure and function and carotid doppler to r/o carotid stenosis. Telemetry to monitor for cardiac arrhythmia. Patient is full code and names her sister as her DPOA-H. Care to return to Dr. John on dismissal 09/18/17 Aphasia has improved, I don't detect overt deficits at present although patient is drowsy and does not exhibit maximal effort with testing. TPA administered in [id number] CT today. Nicardipine required yesterday for blood pressure control, titrated off overnight and blood pressure now normal with usual home medicines on hold. Transient left periorbital headache last night without visual change or change in neurological exam, resolved with morphine. No recurrence. Telemetry with sinus rhythm per my review. Continue aspirin, atorvastatin at 80 mg. Consider MRI. Speech therapy cleared for regular diet, suggested communication screening for further language evaluation. PT/OT evaluations completed-minor functional deficits, home health initial recommendation. 09/19/17 Expressive aphasia/facial droop have resolved; minimally symptomatic in the emergency room prior to TPA administration. Post-TPA head CT negative for hemorrhage. Proceed with MRI to complete stroke evaluation. Amlodipine resumed for hypertension; remainder of home medications on hold. Speech to reevaluate for language/communication in a.m. 09/20/17 Patient continues to do well. No further expressive aphasia/facial droop since in ER. CT head post-TPA neg. MRI brain and cartoid sono essentially neg. Echo is pending. Home health for PT/OT. Pt to take ASA 81mg qd and Lipitor 80mg qd. F-u with Dr. John in 1 wk. Time spent with patient: greater than 35 minutes Resuscitation Status: Full Code Discharge Plan - Discharge Disposition Discharge Date: 09/20/17 Disposition: 86 Home Health Service *Condition: Stable Reason For Visit (Visit label in EMR): CVA - Discharge Medications *Discharge Medications: New Aspirin *EC* [Ecotrin] 81 mg PO DAILY tab Atorvastatin [Lipitor] 80 mg PO HS #30 tab Continue Levothyroxine Sodium 125 mcg PO ACB Insulin Lispro [Humalog] 14 unit SQ WS Insulin Lispro [Humalog] 12 unit SQ WL Insulin Degludec *U100* [Tresiba Flextouch U-100 Pen] 20 unit SQ HS Furosemide [Lasix] 20 mg PO DAILY Gabapentin [Neurontin] 600 mg PO HS Amlodipine [Norvasc] 10 mg PO DAILY Losartan [Cozaar] 100 mg PO HS Atorvastatin [Lipitor] 40 mg PO HS Donepezil [Aricept] 5 mg PO HS Insulin Lispro [Humalog] 10 unit SQ WB Citalopram [Celexa] 10 mg PO DAILY - Discharge Packet/Instructions *Diet: Diabetic, heart healthy diet *Activity: As tolerated *Pain Management/Treatment: n/a *Wound Care: n/a *Expected Signs/Symptoms: n/a *Notify Physician if: you have recurrence of facial droop, problems finding your words, you develop a headache or other new symptoms *During Business Hours Contact: Dr John's office *After Business Hours Contact: Dr John's office and follow after-hours instructions or report to ER. *Pending Lab/Results: Follow up w/Provider (Dr John will review your echocardiogram results with you at your follow up appt.) - Referrals/Follow Up *Referrals/Follow Up: Taryn John DO [Primary Care Provider] - 1 Week (APPOITMENT ON 09/27 AT 9:20. CHECK IN TIME 9:05.) - Patient Handouts Patient Handouts: Ischemic Stroke (GEN) - Dismissal Complete Discharge Instructions are:: Incomplete Physician Narrative - Narrative Physician: Kacie Pineda MD Attestation Narrative: Date: 09/20/17 Time: 2314 I have independently evaluated and examined this patient. I reviewed the chart, the patient's history, and the SPEED OPERATOR/PA's documented findings as above. We discussed and formulated the assessment and plan as above with additions as below: Lina sims was seen with her sister at the bedside. Patient reports no concerns today and denied headache or pain. Her sister reported no further difficulty speaking has been noted. Patient is soft spoken but responds to questions appropriately. Blood pressure has fluctuated somewhat ranging from 139/76-163/84 on the date of discharge. Regular rhythm, S1-S2--telemetry strips reviewed demonstrating sinus rhythm consistently No facial asymmetry, power grossly symmetric Results of MRI reviewed with the patient and her sister; speech therapy consult today for communication evaluation revealed some short-term memory deficits which has been known previously following prior neurological event. No additional speech services recommended however patient will discharge home with home health/PT for additional strengthening and home safety evaluation. Medication changes discussed with the patient and her sister. Resume usual antihypertensive regimen.
[2017-09-20] MEDS: INSULIN ASPART 100unit/ml INJECTION SQ PRN (10:27)
[2017-09-20] MEDS ORDERED: NEOMYCIN/POLYMYXIN/BACITRACIN OINT PACKET TP ONE (14:55)
--- NOTE | 2017-09-21 11:17 | Echocardiogram ---
DATE OF PROCEDURE September 20, [address] Kacie Pineda This is a two-dimensional echo with spectral Doppler, color-flow and M-mode. It was obtained in a patient with CVA. Left atrium is dilated. Left ventricular end-diastolic dimension is normal. Left ventricle wall thickness is increased. LV systolic function is normal with ejection fraction of about 71%. Right atrium is normal. Right ventricle is normal. Aortic root dimension is normal. Mitral valve is morphologically normal with mild mitral regurgitation. Aortic valve is a trileaflet structure with no stenosis or insufficiency. Tricuspid valve shows mild tricuspid regurgitation with pulmonary artery systolic pressure at the upper limits of normal at 31. Pulmonary valve shows trace of pulmonary insufficiency. There is trace of pericardial effusion with no echocardiographic evidence of tamponade. IMPRESSION 1. Normal LV systolic function with ejection fraction of about 71%. 2. Left atrial dilation. 3. Concentric left ventricular hypertrophy. 4. Trace of pericardial effusion. 5. Mild mitral regurgitation. 6. Mild tricuspid regurgitation with estimated pulmonary artery systolic pressure of 31. 7. Grossly no intracardiac thrombus or mass. [facility]
== END 2017-09-20 15:20 | disposition home health service (06) | DRG 66 ==
LOC: ED 16:16 → CCU 18:02 → MED 09-19 17:30
PROVIDERS: ADMIT Internal Medicine; ATTEND Internal Medicine